=== PATIENT | female | born 1950 | race Caucasian/White ===

== ENCOUNTER 2017-04-24 07:21 | Day surgery (SDC) | payer MEDICARE ==
[~2017-04-24 07:21] MED LIST: Midazolam 1 MG/ML 2 ML SDV ONE; Propofol 200 MG/20 ML SDV ONE; fentaNYL 100 MCG/2 ML SDV ONE
[2017-04-24] MEDS ORDERED: Dextrose 5%-Lactated Ringers 1,000 ML IV SCH (07:30)
[2017-04-24] MEDS ORDERED: Ondansetron 4 MG/2 ML SDV ONE (08:58)
[2017-04-24 11:22] VITALS: BP 125/61
--- NOTE | 2017-04-29 10:49 | OR ---
DATE OF PROCEDURE: 04/24/2017 PREOPERATIVE DIAGNOSIS: Indications for screening colonoscopy. POSTOPERATIVE DIAGNOSIS: Very limited uncomplicated diverticulosis. OPERATIVE PROCEDURE: Flexible colonoscopy. ANESTHESIA: IV sedation. INDICATIONS FOR PROCEDURE: This is a 66-year-old presenting for a screening colonoscopy. She does have a history of grandfather in the elderly state developing colon cancer. Otherwise, no family history is noted of colon neoplasia. Plan is to proceed with a colonoscopy with biopsies and/or polypectomy as indicated. Potential risks including bleeding and perforation were discussed, and the patient wishes to proceed. DETAILS OF PROCEDURE: The patient was taken to the operating room and placed in a left lateral decubitus position. IV sedation was administered after which the initial digital rectal exam was performed and was unremarkable. Colonoscope was then passed into the rectum with retroflexion revealing uncomplicated hemorrhoidal columns. The scope was then eventually passed to the level of the cecum. The prep was fairly good with there only being a small amount of liquid and some scattered solid stool. To that level, a very limited number of left-sided diverticula were seen. These were otherwise uncomplicated. Apart from that, there were no areas of colitis. No polyps or other signs of neoplasia. The scope was then withdrawn, the above findings reconfirmed, and the procedure concluded. The patient was taken to the recovery room in satisfactory condition. Recommendation would be to repeat the colonoscopy in 10 years depending on the patient's health status at that point. Campbell Adam MD /[id number]
== END 2017-04-24 11:00 | disposition home or self-care (01) ==
LOC: JP.SDS 07:21
PROVIDERS: ATTEND Surgery
DX: Z12.11 Encounter for screening for malignant neoplasm of colon (principal); K57.30 Diverticulosis of large intestine without perforation or abscess without bleeding; Z80.0 Family history of malignant neoplasm of digestive organs; J45.909 Unspecified asthma, uncomplicated; Z79.899 Other long term (current) drug therapy
CPT/HCPCS: G0105; J2250; J2405; J2704; J3010; J7042